=== PATIENT | female | born 1935 | race Caucasian/White ===

== ENCOUNTER 2021-07-19 07:56 | Inpatient (IN) ==
[2021-07-19] MEDS ORDERED: MAGNESIUM SULFATE 2 GM/50 ML BAG IV ONE (10:30)
[2021-07-19] MEDS ORDERED: PROPOFOL 200 MG/20 ML VIAL IV ONE (10:30)
[2021-07-19] MEDS ORDERED: fentaNYL 250 MCG/5 ML VIAL IV ONE (10:30)
[2021-07-19] MEDS ORDERED: LIDOCAINE HCL/PF 100 MG/5 ML SYRINGE IV ONE (10:30)
[2021-07-19] MEDS ORDERED: KETAMINE 50 MG/ML Syringe (ANEST) IV ONE (10:30)
[2021-07-19] MEDS ORDERED: TRANEXAMIC ACID 1,000 MG/10 ML VIAL ONE (10:30)
[2021-07-19] MEDS ORDERED: DEXAMETHASONE 10 MG/ML VIAL ONE (10:30)
[2021-07-19] MEDS ORDERED: ONDANSETRON 4 MG/2 ML VIAL ONE (10:30)
[2021-07-19] MEDS ORDERED: TRANEXAMIC ACID 1,000 MG/10 ML VIAL TOPICAL ONE (11:11)
--- NOTE | 2021-07-19 11:37 | XRay Report ---
CLINICAL INFORMATION: fractured right hip COMPARISON: Immediate preoperative films unavailable. FINDINGS: Right total hip prostheses is anatomically aligned without loosening or infection. Oblique subtrochanteric fracture has been reduced to anatomic alignment and is transfixed by lateral plate and screws. IMPRESSION: Subtrochanteric fracture reduced to anatomic alignment and transfixed by lateral plate, screws and cerclage wires. Right hip prostheses-unremarkable Interpreted and Authenticated by: Jonnie Kramer 07/19/21
[2021-07-19] MEDS ORDERED: NALOXONE HCL 0.4 MG/ML VIAL IV PRN (11:48)
[2021-07-19] MEDS ORDERED: LACTATED RINGERS 250 ML IV PRN (11:48)
[2021-07-19] MEDS ORDERED: MEPERIDINE 25 MG/ML VIAL IV PRN (11:48)
[2021-07-19] MEDS ORDERED: PROMETHAZINE 25 MG/ML VIAL IV PRN (11:48)
[2021-07-19] MEDS ORDERED: BENZOCAINE/MENTHOL 1 LOZENGE PO PRN ×2 (11:48→17:21)
[2021-07-19] MEDS ORDERED: IPRATROPIUM/ALBUTEROL 3 ML AMPUL.NEB NEB PRN (11:48)
[2021-07-19] MEDS ORDERED: ACETAMINOPHEN 1,000 MG/100 ML BAG IV ONE (11:48)
[2021-07-19] MEDS ORDERED: ONDANSETRON 4 MG/2 ML VIAL IV PRN ×3 (11:48→17:21)
[2021-07-19] MEDS ORDERED: diphenhydrAMINE 50 MG/ML VIAL IV PRN (11:48)
--- NOTE | 2021-07-19 11:57 | Brief Operative Note ---
Brief Operative Note Date of procedure: 07/19/21 Pre-op diagnosis: right hip periprosthetic fx Post-op diagnosis: same Procedure: right hip periprosthetic fx orif Grafts/Implants: Yes Anesthesia: GETA Complications: none Surgeon: Dionisio Sanz Internal Combustion Engine Assembler: Anish Anders Estimated blood loss (cc): 100 Tourniquet Time (Minutes): 0 Specimens Removed/Pathology: none sent Condition: stable Disposition: PACU
[2021-07-19] MEDS ORDERED: LACTATED RINGERS 1,000 ML IV SCH (12:00)
--- NOTE | 2021-07-19 12:21 | Discharge Plan ---
Discharge Instructions - [facility] Patient Instructions Total Hip Protocol: Follow activity instructions as provided by Physical Therapy. Discharge Plan Patient/Caregiver Discharge Instructions Activity: ambulate only with your walker Prescriptions: New hydrocodone-acetaminophen 5-325 mg Tablet 1 - 2 tab PO Q4H PRN (Reason: Pain) Qty: 30 RF: 0 aspirin 81 mg Tablet,Delayed Release (Dr/Ec) 81 mg PO QDAY Qty: 60 RF: 0 No Action atorvastatin 10 mg tablet 10 mg tablet 10 mg PO QDAY Qty: 90 RF: 1 levothyroxine 112 mcg tablet 112 mcg PO QDAY Qty: 90 RF: 1 nitrofurantoin 100 mg Capsule 100 mg PO BID RF: 0 calcium carbonate 600 mg calcium (1,500 mg) Tablet 600 mg PO DAILY RF: 0 cyanocobalamin (vitamin B-12) 500 mcg Tablet 500 mcg PO QDAY RF: 0 lisinopril 5 mg Tablet 5 mg PO QDAY RF: 0 ferrous gluconate 324 mg (36 mg iron) Tablet 324 mg PO QDAY RF: 0 potassium chloride 20 mEq Tablet Extended Release 20 meq PO QDAY RF: 0 folic acid tablet 0.4 mg PO DAILY RF: 0 metoprolol succinate 25 mg tablet extended release 24 hr 50 mg PO QDAY RF: 0 tramadol 50 mg Tablet 50 mg PO BID RF: 0 magnesium hydroxide [Milk of Magnesia] 400 mg/5 mL Suspension 400 mg PO PRN PRN (Reason: Constipation) RF: 0 ibuprofen 400 mg Tablet 400 mg PO Q8H PRN (Reason: Pain) RF: 0 ondansetron 4 mg Tablet,Disintegrating 4 mg PO Q6H PRN (Reason: Nausea And Vomiting) RF: 0 bisacodyl 5 mg Tablet 5 mg PO DAILY PRN (Reason: Constipation) RF: 0 acetaminophen [Tylenol] 325 mg Capsule 650 mg PO Q6H PRN (Reason: headache or pain) RF: 0 Other Ambulatory Orders: Physical Therapy DC - [facility] (Routine) Location: None Selected Ordered By: Anish Anders Toilet Riser Discharge Order (ONCE) Location: None Selected Ordered By: Anish Anders Walker (ONCE) Location: None Selected Ordered By: Anish Anders Follow Up Plan Follow up with: Anish Anders PA-C [Physician [place] Compounder] - Patient Disposition: er [facility] Prognosis: Fair Rehab Potential: Fair I certify that the patient requires SNF services: Yes Discharge Orders: Discharge Order (Routine); Ordered 07/20/21 Ordered By: Anish Anders
--- NOTE | 2021-07-19 12:35 | Operative Note ---
DATE OF OPERATION: 07/19/2021 PREOPERATIVE DIAGNOSIS: Proximal periprosthetic fracture, 3-part. POSTOPERATIVE DIAGNOSIS: Proximal periprosthetic fracture, 3-part with a stable [place] stem. PROCEDURE: Right total hip arthroplasty, periprosthetic fracture open reduction and internal fixation with cable and plates. SURGEON: Dionisio Sanz M.D. PERCUSSION INSTRUMENT TUNER: Anish Anders PA-C. The PA's assistance was required for the safe and efficient completion of the entire case. This provider's expertise and technical skill were required throughout the case. The PA assisted with preoperative coordination, intraoperative retraction, wound closure, dressing and splint application, as well as postoperative documentation and care coordination. ANESTHESIA: General LMA anesthesia. COMPLICATIONS: None. DESCRIPTION OF PROCEDURE: The patient was brought to the operating room, put to sleep with general LMA anesthesia. Once asleep, the patient had the right hip sterilely prepped and draped and a timeout performed confirming this as the operative site by initials, consent form, and W-rays. Once done, I was able to then make an incision in the superior to distal location over the greater trochanter, and I identified the IT band and the tensor fascia. This was incised through the gluteus ced and identified the hip joint. The stem appeared to be stable. The greater trochanter was completely off as well as the lesser trochanter. At this point, we were able to then reduce the fracture by rotating the hip. A cable was then placed around the lesser trochanter. Three (3) distal cables onto the shaft were placed through the plate and one (1) around the greater trochanter. The hook plate was secured and then we took an x-ray. The Initial x-ray showed a significant disc displacement or the implant trochanteric hook appeared to be posterior. Once done, I was able to reduce this movethe plate slightly more anteriorly for better fixation. I then placed the cables and tensioned them into place, making sure that we captured the lesser trochanter and greater trochanter. The patient tolerated this well. There were no complications. We thoroughly irrigated the wound and then placed Tranexamic acid within the wound with 500 cc of normal saline. We allowed this to set up for 5 minutes and then once this had formed the initial we then closed the fascial layer with #1 Stratafix, closed Wilmer's fascia with Stratafix and adhesive and tiarra. The wound was about 6-7 inches long. A sterile bandage was applied. There were no complications. The implant is a hook plate from [employer] as well as 5 cables. RBH:akilah Job ID: [id number] Doc ID: [id number] Dionisio Sanz MD
[2021-07-19] MEDS: fentaNYL 100 MCG/2 ML VIAL IV PRN ×2 (12:50→12:52)
--- NOTE | 2021-07-19 15:39 | XRay Report ---
CLINICAL INFORMATION: Proximal left femoral fracture ORIF COMPARISON: 06/29/2019 FINDINGS: Oblique subtrochanteric fracture through the proximal left femoral diaphysis has been reduced to anatomic alignment and transfixed by gamma nail. Right total hip prostheses is anatomically aligned without loosening or infection. A right subtrochanteric fracture has been reduced to anatomic alignment transfixed by plate and cerclage wires. Severe degenerative change noted in the left hip. IMPRESSION: ORIF oblique subtrochanteric fracture proximal left femoral diaphysis. Alignment is anatomic. Right total hip prostheses anatomically aligned Right subtrochanteric fracture reduced to anatomic alignment transfixed by plate and cerclage wires Interpreted and Authenticated by: Jonnie Kramer 07/19/21
[2021-07-19] MEDS ORDERED: HYDROmorphone 1 MG/ML SYRINGE IV PRN (17:21)
[2021-07-19] MEDS ORDERED: TRANEXAMIC ACID 1,000 MG/10 ML VIAL IV ONE (17:21)
[2021-07-19] MEDS ORDERED: FLEETS ADULT ENEMA PR PRN (17:21)
[2021-07-19] MEDS ORDERED: BISACODYL 10 MG SUPP.RECT PR PRN (17:21)
[2021-07-19] MEDS ORDERED: MAGNESIUM HYDROXIDE 30 ML ORAL.SUSP PO PRN ×2 (17:21→17:46)
[2021-07-19] MEDS ORDERED: POLYETHYLENE GLYCOL 3350 17 GM PACKET PO PRN (17:21)
[2021-07-19] MEDS ORDERED: KETOROLAC 15 MG/ML VIAL IV PRN (17:21)
[2021-07-19] MEDS ORDERED: LORazepam 0.5 MG TABLET PO PRN (17:46)
[2021-07-19] MEDS ORDERED: ACETAMINOPHEN 325 MG PO PRN (17:46)
[2021-07-19] MEDS: LACTATED RINGERS 1,000 ML IV SCH ×2 (18:10→21:36)
[2021-07-19] MEDS ORDERED: ONDANSETRON 4 MG ODT TABLET SL PRN (20:40)
[2021-07-19] MEDS ORDERED: BISACODYL 5 MG TABLET PO PRN (20:42)
[2021-07-19] MEDS: SENNOSIDES 1 TABLET PO SCH (21:34)
[2021-07-19] MEDS: NITROFURANTOIN SR 100 MG CAPSULE PO SCH (21:34)
[2021-07-19] MEDS: ceFAZolin 1 GM VIAL IV SCH (21:34)
[2021-07-19] MEDS: DOCUSATE SODIUM 100 MG CAPSULE PO SCH (21:35)
[2021-07-19] MEDS: 0.9 % SODIUM CHLORIDE 10 ML SYRINGE IV SCH (21:35)
[2021-07-19] MEDS: ASPIRIN 81 MG TAB.CHEW CHEWED SCH (21:35)
[2021-07-19] MEDS: TEMAZEPAM 15 MG CAPSULE PO PRN (21:35)
[2021-07-20] MEDS: LACTATED RINGERS 1,000 ML IV SCH ×3 (04:51→15:39)
[2021-07-20] MEDS: IBUPROFEN 200 MG TABLET PO PRN ×3 (05:42→18:49)
[2021-07-20] MEDS: ceFAZolin 1 GM VIAL IV SCH (05:42)
[2021-07-20] MEDS: 0.9 % SODIUM CHLORIDE 10 ML SYRINGE IV SCH ×4 (05:43→20:38)
[2021-07-20] MEDS: LEVOTHYROXINE SODIUM 112 MCG TABLET PO SCH (07:35)
[2021-07-20] MEDS: POTASSIUM CHLORIDE 20 MEQ TABLET PO SCH (10:53)
[2021-07-20] MEDS: FOLIC ACID 1 MG TABLET PO SCH (10:54)
[2021-07-20] MEDS: DOCUSATE SODIUM 100 MG CAPSULE PO SCH ×2 (10:54→19:50)
[2021-07-20] MEDS: ASPIRIN 81 MG TAB.CHEW CHEWED SCH ×2 (10:54→19:50)
[2021-07-20] MEDS: ATORVASTATIN 20 MG TABLET PO SCH (10:54)
[2021-07-20] MEDS: FERROUS GLUCONATE 324 MG TABLET PO SCH (10:54)
[2021-07-20] MEDS: LISINOPRIL 5 MG TABLET PO SCH (10:57)
[2021-07-20] MEDS: CYANOCOBALAMIN (VITAMIN B-12) 500 MCG TABLET PO SCH (10:57)
[2021-07-20] MEDS: METOPROLOL SUCCINATE 25 MG TAB.XL.24H PO SCH (10:57)
[2021-07-20] MEDS: NITROFURANTOIN SR 100 MG CAPSULE PO SCH ×2 (10:57→19:49)
[2021-07-20] MEDS: CALCIUM CARBONATE 500 MG TAB.CHEW CHEWED SCH (10:58)
[2021-07-20] MEDS: SENNOSIDES 1 TABLET PO SCH (19:50)
[2021-07-21] MEDS: LACTATED RINGERS 1,000 ML IV SCH ×2 (01:03→08:25)
[2021-07-21] MEDS: IBUPROFEN 200 MG TABLET PO PRN ×2 (04:04→14:40)
[2021-07-21] MEDS: 0.9 % SODIUM CHLORIDE 10 ML SYRINGE IV SCH ×3 (04:05→20:56)
[2021-07-21] MEDS: LEVOTHYROXINE SODIUM 112 MCG TABLET PO SCH (07:08)
[2021-07-21] MEDS: FOLIC ACID 1 MG TABLET PO SCH (08:10)
[2021-07-21] MEDS: LISINOPRIL 5 MG TABLET PO SCH (08:10)
[2021-07-21] MEDS: ASPIRIN 81 MG TAB.CHEW CHEWED SCH ×2 (08:10→20:56)
[2021-07-21] MEDS: FERROUS GLUCONATE 324 MG TABLET PO SCH (08:11)
[2021-07-21] MEDS: CYANOCOBALAMIN (VITAMIN B-12) 500 MCG TABLET PO SCH (08:11)
[2021-07-21] MEDS: DOCUSATE SODIUM 100 MG CAPSULE PO SCH ×2 (08:11→20:50)
[2021-07-21] MEDS: ATORVASTATIN 20 MG TABLET PO SCH (08:11)
[2021-07-21] MEDS: NITROFURANTOIN SR 100 MG CAPSULE PO SCH ×2 (08:11→20:56)
[2021-07-21] MEDS: METOPROLOL SUCCINATE 25 MG TAB.XL.24H PO SCH (08:11)
[2021-07-21] MEDS: POTASSIUM CHLORIDE 20 MEQ TABLET PO SCH (08:12)
[2021-07-21] MEDS: CALCIUM CARBONATE 500 MG TAB.CHEW CHEWED SCH (08:13)
--- NOTE | 2021-07-21 09:53 | Orthopedic Progress Note ---
SUBJECTIVE Subjective Patient information: Note initiated : 07/21/21 at 9:49 am Service Date, if different from initiated Date: [] Patient: Casie Corrales 85 y/o F admitted on 07/19/21 for Right ORIF P eriprosthetic Hip Fracture, Possible. Chief Complaint: [right intertroch fx and miguel ángel prosthetic fx orif] Constitutional Vitals: Vital Signs Temp Pulse Resp BP Pulse Ox 98.9 F 84 16 150/77 96 07/21/21 07:25 07/21/21 07:25 07/21/21 07:25 07/21/21 07:25 07/21/21 07:25 Period Temp Pulse Resp BP Sys/Mon Pulse Ox Last 24 Hr 97.4 F-99.2 F 62-84 14-18 124-168/67-83 16-97 Intake and Output 07/20/21 07/21/21 07/21/21 21:59 05:59 13:59 Intake Total 1430 400 Output Total 1 6 1 Balance 1429 394 -1 Weight 163 lb 9 oz Intake & Output: Intake & Output 07/20/21 07/21/21 07/21/21 21:59 05:59 13:59 Intake Total 1430 400 Output Total 1 6 1 Balance 1429 394 -1 Weight 163 lb 9 oz Intake: IV 710 Lactated Ringers 1,000 ml @ 100 710 mls/hr IV .Q10H [facility] Rx#: [id number] Oral 720 400 Output: # of times incontinent of urine 1 6 1 Other: Meal Nourishment/Supplement Percent of Meal Consumed 75% # Bowel Movements 0 Head Head exam: Present atraumatic Eye Eye exam: Present PERRL Extremities Exam Extremities exam: Present joint swelling, Foot pink and warm and neurovascular intact Psychiatric Psychiatric exam: Present normal affect and normal mood OBJ DATA Labs CBC & Chem 7: 07/20/21 07:08 Labs: Abnormal Lab Results 07/20/21 07:08 Hct 26.4 L Meds: Medications Acetaminophen (Acetaminophen 325 Mg Tablet) 650 mg PO Q6HP PRN; Protocol PRN Reason: Per Pain Protocol/Fever > 101 Hydrocodone Bitart/Acetaminophen (Hydrocodone/Apap 7.5/325mg Tablet) 1 - 2 tab PO Q4HP PRN; Protocol PRN Reason: Per Pain Protocol Aspirin (Aspirin 81 Mg Tab.Chew) 81 mg CHEWED BID [facility] Last Admin: 07/21/21 08:10 Dose: 81 mg Documented by: Atorvastatin Calcium (Atorvastatin 20 Mg Tablet) 10 mg PO QDAY [facility] Last Admin: 07/21/21 08:11 Dose: 10 mg Documented by: Bisacodyl (Bisacodyl 10 Mg Supp.Rect) 10 mg [place] Q2-3DAYS PRN PRN Reason: Constipation Bisacodyl (Bisacodyl 5 Mg Tablet) 5 mg PO DAILYP PRN PRN Reason: Constipation Calcium Carbonate/Glycine (Calcium Carbonate 500 Mg Tab.Chew) 500 mg CHEWED DAILY [facility] Last Admin: 07/21/21 08:13 Dose: 500 mg Documented by: Cyanocobalamin (Cyanocobalamin (Vitamin B-12) 500 Mcg Tablet) 500 mcg PO QDAY [facility] Last Admin: 07/21/21 08:11 Dose: 500 mcg Documented by: Docusate Sodium (Docusate Sodium 100 Mg Capsule) 100 mg PO BID [facility] Last Admin: 07/21/21 08:11 Dose: 100 mg Documented by: Ferrous Gluconate (Ferrous Gluconate 324 Mg Tablet) 324 mg PO DAILY [facility] Last Admin: 07/21/21 08:11 Dose: 324 mg Documented by: Folic Acid (Folic Acid 1 Mg Tablet) 1 mg PO DAILY [facility] Last Admin: 07/21/21 08:10 Dose: 1 mg Documented by: Hydromorphone HCl (Hydromorphone 1 Mg/Ml Syringe) 0.5 - 2 mg IV Q2HP PRN; Protocol PRN Reason: Per Pain Protocol Lactated Ringer's (Lactated Ringers) 1,000 mls @ 100 mls/hr IV .Q10H [facility] Last Admin: 07/21/21 08:25 Dose: Not Given Documented by: Ibuprofen (Ibuprofen 200 Mg Tablet) 400 mg PO Q8HP PRN; Protocol PRN Reason: Pain Last Admin: 07/21/21 04:04 Dose: 400 mg Documented by: Ketorolac Tromethamine (Ketorolac 15 Mg/Ml Vial) 15 mg IV Q6HP PRN; Protocol PRN Reason: Per Pain Protocol Stop: 07/21/21 17:21 Levothyroxine Sodium (Levothyroxine Sodium 112 Mcg Tablet) 112 mcg PO ACB [facility] Last Admin: 07/21/21 07:08 Dose: 112 mcg Documented by: Lisinopril (Lisinopril 5 Mg Tablet) 5 mg PO QDAY [facility] Last Admin: 07/21/21 08:10 Dose: 5 mg Documented by: Lorazepam (Lorazepam 0.5 Mg Tablet) 0.5 mg PO Q4HP PRN PRN Reason: ANXIETY/SEDATION Magnesium Hydroxide (Magnesium Hydroxide 30 Ml Oral.Susp) 30 ml PO BIDP PRN PRN Reason: Constipation Last Admin: 07/21/21 08:37 Dose: 30 ml Documented by: Metoprolol Succinate (Metoprolol Succinate 25 Mg Tab.Xl.24h) 50 mg PO QDAY [facility] Last Admin: 07/21/21 08:11 Dose: 50 mg Documented by: Nitrofurantoin Macrocrystals (Nitrofurantoin Sr 100 Mg Capsule) 100 mg PO BID [facility] Last Admin: 07/21/21 08:11 Dose: 100 mg Documented by: Ondansetron HCl (Ondansetron 4 Mg/2 Ml Vial) 4 mg IV Q4HP PRN; Protocol PRN Reason: Nausea And Vomiting Ondansetron HCl (Ondansetron 4 Mg Odt Tablet) 4 mg SL Q6HP PRN PRN Reason: Nausea And Vomiting Polyethylene Glycol (Polyethylene Glycol 3350 17 Gm Packet) 17 gm PO DAILYP PRN PRN Reason: Constipation Potassium Chloride (Potassium Ch[facility] 20 [facility]eq [facility]t) [facility] Last Admin: 07/21/21 08:12 Dose: 20 meq Documented by: Senna (Sennosides 1 Tablet) 2 tab PO [facility] Last Admin: 07/20/21 19:50 Dose: 2 tab Documented by: Sodium Biphosphate/Sodium Phosphate (Fleets Adult Enema) 1 dose [place] Q3-4DAYS PRN PRN Reason: Constipation Sodium Chloride (0.9 % Sodium Chloride 10 Ml Syringe) 10 ml IV Q8 [facility] Last Admin: 07/21/21 04:05 Dose: 10 ml Documented by: Temazepam (Temazepam 15 Mg Capsule) 15 mg PO HSP PRN PRN Reason: Insomnia Last Admin: 07/19/21 21:35 Dose: 15 mg Documented by: Throat Lozenges (Benzocaine/Menthol 1 Lozenge) 1 lozenge PO PRN PRN PRN Reason: Sore Throat A/P Narrative A/P Narrative: dc to rehab or care facilities for 2-3 weeks then dc to home very week as she is deconditioned from bed rest for 3 weeks Time Spent With Patient Time: Total time spent is greater than 50% in coordination of care (as documented) at patient's floor/unit and/or counseling patient: Total time spent with greater than 50% in coordination of care (as documented) at patient's floor/unit and/or counseling patient:: 15 - 24 minutes
[2021-07-21] MEDS: SENNOSIDES 1 TABLET PO SCH (20:51)
[2021-07-21] MEDS: ACETAMINOPHEN 325 MG TABLET PO PRN (21:42)
[2021-07-21] MEDS: TEMAZEPAM 15 MG CAPSULE PO PRN (22:21)
[2021-07-22] MEDS: 0.9 % SODIUM CHLORIDE 10 ML SYRINGE IV SCH ×4 (05:48→20:53)
--- NOTE | 2021-07-22 07:19 | Consultation ---
DATE OF CONSULTATION: 07/19/2021 HISTORY OF PRESENT ILLNESS: The patient arrived in the Emergency Room where she was diagnosed with a periprosthetic fracture. She was transferred from [place]. I have reviewed her images and reviewed her history and physical. Her chief complaint is right leg and thigh pain with inability to ambulate after a same level fall. This occurred about a week ago when she fell. She has been in the hospital in the swing bed, has not improved. PAST MEDICAL HISTORY: Significant for diminished activity level, she is 85 years of age. She had the left hip pain noted on 04/21/2021 after a fall. Today, it is right hip pain. 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 She has a history of hypertension, shingles, osteoarthritis, osteopenia, GERD, reflux, insomnia, hyperlipidemia, diverticulitis. PRIOR SURGICAL HISTORY: Right total hip arthroplasty. SOCIAL HISTORY: The patient reports she lives at home and is functioning but not independently. She denies use of tobacco or alcohol use. FAMILY HISTORY: Significant for a father who secondary to a cerebrovascular accident. REVIEW OF SYSTEMS: No active chest pain, no shortness of breath. She had a thrombectomy by Dr. Ortega in 2016. ALLERGIES: CIPRO. HOME MEDICATIONS: 1. Metoprolol. 2. Aspirin. 3. Gabapentin. 4. Restoril. 5. Hydrocodone. 6. Levothyroxine 100 ____. PHYSICAL EXAMINATION: GENERAL: Patient is alert, cooperative, in no severe pain. She accounts her injury very accurately. She is in no acute distress. EYES: Her extraocular movements are intact. NECK: Supple. Nontender. CARDIOVASCULAR: Regular rate and rhythm. No murmurs, rubs, or gallops. Respiratory rate is 14 and nonlabored. ABDOMEN: Soft, nontender. EXTREMITIES: Swollen around the right hip with no open wounds, lacerations, or abrasions. NEUROLOGICAL: She can move her foot up and down. She is awake and alert. SKIN: Warm. PSYCHIATRIC: Evaluation of her mood and affect appropriate. IMAGING: Her x-rays of right hip demonstrate three views. This demonstrated a periprosthetic fracture involving the lesser troch, greater troch with an [place] stem that appears to be stable. With this, I have recommended the diagnosis as periprosthetic fracture, right hip. Procedure will be treatment of open reduction and internal fixation with a hook plate with cables, bone grafting as needed, preserving the stem if possible. There were a possibility of replacing the stem. There is a risk of heart attacks and strokes giving these cases and her past history. She agrees to proceed. RBH:ruiz Job ID: [id number] Doc ID: [id number] Dionisio Sanz MD
[2021-07-22] MEDS: HYDROCODONE/APAP 7.5/325MG TABLET PO PRN ×2 (07:46→17:27)
[2021-07-22] MEDS: LEVOTHYROXINE SODIUM 112 MCG TABLET PO SCH (07:58)
[2021-07-22] MEDS: LISINOPRIL 5 MG TABLET PO SCH (10:16)
[2021-07-22] MEDS: DOCUSATE SODIUM 100 MG CAPSULE PO SCH ×2 (10:16→20:51)
[2021-07-22] MEDS: METOPROLOL SUCCINATE 25 MG TAB.XL.24H PO SCH (10:16)
[2021-07-22] MEDS: ATORVASTATIN 20 MG TABLET PO SCH (10:16)
[2021-07-22] MEDS: CYANOCOBALAMIN (VITAMIN B-12) 500 MCG TABLET PO SCH (10:17)
[2021-07-22] MEDS: FOLIC ACID 1 MG TABLET PO SCH (10:17)
[2021-07-22] MEDS: CALCIUM CARBONATE 500 MG TAB.CHEW CHEWED SCH (10:17)
[2021-07-22] MEDS: ASPIRIN 81 MG TAB.CHEW CHEWED SCH ×2 (10:17→20:52)
[2021-07-22] MEDS: POTASSIUM CHLORIDE 20 MEQ TABLET PO SCH (10:17)
[2021-07-22] MEDS: FERROUS GLUCONATE 324 MG TABLET PO SCH (10:17)
[2021-07-22] MEDS: NITROFURANTOIN SR 100 MG CAPSULE PO SCH ×2 (10:17→20:52)
[2021-07-22] MEDS: IBUPROFEN 200 MG TABLET PO PRN (20:51)
[2021-07-22] MEDS: SENNOSIDES 1 TABLET PO SCH (20:51)
[2021-07-22] MEDS: TEMAZEPAM 15 MG CAPSULE PO PRN (20:52)
[2021-07-23] MEDS: IBUPROFEN 200 MG TABLET PO PRN ×2 (04:55→19:51)
[2021-07-23] MEDS: 0.9 % SODIUM CHLORIDE 10 ML SYRINGE IV SCH ×3 (04:56→19:59)
--- NOTE | 2021-07-23 07:54 | Orthopedic Progress Note ---
SUBJECTIVE Subjective Patient information: Note initiated : 07/23/21 at 7:52 am Service Date, if different from initiated Date: [] Patient: Casie Corrales 85 y/o F admitted on 07/19/21 for Right ORIF P eriprosthetic Hip Fracture, Possible. Chief Complaint: [PO 4 pt is a/a and NAD currently awaiting SNF transfer] Constitutional Vitals: Vital Signs Temp Pulse Resp BP Pulse Ox 98.1 F 72 14 130/73 95 07/23/21 03:54 07/23/21 03:54 07/23/21 03:54 07/23/21 03:54 07/23/21 03:54 Period Temp Pulse Resp BP Sys/Mon Pulse Ox Last 24 Hr 96.2 F-99.3 F 72-84 14-20 110-147/62-74 95-100 Intake and Output 07/22/21 07/23/21 07/23/21 21:59 05:59 13:59 Intake Total 980 100 Output Total 152 150 Balance 828 -50 Weight 148 lb 3.2 oz Intake & Output: Intake & Output 07/22/21 07/23/21 07/23/21 21:59 05:59 13:59 Intake Total 980 100 Output Total 152 150 Balance 828 -50 Weight 148 lb 3.2 oz Intake: Oral 980 100 Output: Void Amount 150 150 # of times incontinent of urine 2 Other: Meal Dinner Percent of Meal Consumed 25% Feeding Ability Independent Urine Appearance Clear Clear Urine Color Bright Yellow Dark Yellow Urine Odor Normal Extremities Exam Extremities exam: Present normal capillary refill, normal inspection, Foot pink and warm and neurovascular intact OBJ DATA Labs CBC & Chem 7: 07/20/21 07:08 Labs: Abnormal Lab Results 07/20/21 07:08 Hct 26.4 L Meds: Medications Acetaminophen (Acetaminophen 325 Mg Tablet) 650 mg PO Q6HP PRN; Protocol PRN Reason: Per Pain Protocol/Fever > 101 Last Admin: 07/21/21 21:42 Dose: 650 mg Documented by: Hydrocodone Bitart/Acetaminophen (Hydrocodone/Apap 7.5/325mg Tablet) 1 - 2 tab PO Q4HP PRN; Protocol PRN Reason: Per Pain Protocol Last Admin: 07/22/21 17:27 Dose: 1 tab Documented by: Aspirin (Aspirin 81 Mg Tab.Chew) 81 mg CHEWED BID [facility] Last Admin: 07/22/21 20:52 Dose: 81 mg Documented by: Atorvastatin Calcium (Atorvastatin 20 Mg Tablet) 10 mg PO QDAY [facility] Last Admin: 07/22/21 10:16 Dose: 10 mg Documented by: Bisacodyl (Bisacodyl 10 Mg Supp.Rect) 10 mg [place] Q2-3DAYS PRN PRN Reason: Constipation Bisacodyl (Bisacodyl 5 Mg Tablet) 5 mg PO DAILYP PRN PRN Reason: Constipation Last Admin: 07/21/21 11:45 Dose: 5 mg Documented by: Calcium Carbonate/Glycine (Calcium Carbonate 500 Mg Tab.Chew) 500 mg CHEWED DAILY [facility] Last Admin: 07/22/21 10:17 Dose: 500 mg Documented by: Cyanocobalamin (Cyanocobalamin (Vitamin B-12) 500 Mcg Tablet) 500 mcg PO QDAY [facility] Last Admin: 07/22/21 10:17 Dose: 500 mcg Documented by: Docusate Sodium (Docusate Sodium 100 Mg Capsule) 100 mg PO BID [facility] Last Admin: 07/22/21 20:51 Dose: 100 mg Documented by: Ferrous Gluconate (Ferrous Gluconate 324 Mg Tablet) 324 mg PO DAILY [facility] Last Admin: 07/22/21 10:17 Dose: 324 mg Documented by: Folic Acid (Folic Acid 1 Mg Tablet) 1 mg PO DAILY [facility] Last Admin: 07/22/21 10:17 Dose: 1 mg Documented by: Hydromorphone HCl (Hydromorphone 1 Mg/Ml Syringe) 0.5 - 2 mg IV Q2HP PRN; Protocol PRN Reason: Per Pain Protocol Ibuprofen (Ibuprofen 200 Mg Tablet) 400 mg PO Q8HP PRN; Protocol PRN Reason: Pain Last Admin: 07/23/21 04:55 Dose: 400 mg Documented by: Levothyroxine Sodium (Levothyroxine Sodium 112 Mcg Tablet) 112 mcg PO ACB [facility] Last Admin: 07/22/21 07:58 Dose: 112 mcg Documented by: Lisinopril (Lisinopril 5 Mg Tablet) 5 mg PO QDAY [facility] Last Admin: 07/22/21 10:16 Dose: 5 mg Documented by: Lorazepam (Lorazepam 0.5 Mg Tablet) 0.5 mg PO Q4HP PRN PRN Reason: ANXIETY/SEDATION Magnesium Hydroxide (Magnesium Hydroxide 30 Ml Oral.Susp) 30 ml PO BIDP PRN PRN Reason: Constipation Last Admin: 07/21/21 08:37 Dose: 30 ml Documented by: Metoprolol Succinate (Metoprolol Succinate 25 Mg Tab.Xl.24h) 50 mg PO QDAY [facility] Last Admin: 07/22/21 10:16 Dose: 50 mg Documented by: Nitrofurantoin Macrocrystals (Nitrofurantoin Sr 100 Mg Capsule) 100 mg PO BID [facility] Last Admin: 07/22/21 20:52 Dose: 100 mg Documented by: Ondansetron HCl (Ondansetron 4 Mg/2 Ml Vial) 4 mg IV Q4HP PRN; Protocol PRN Reason: Nausea And Vomiting Ondansetron HCl (Ondansetron 4 Mg Odt Tablet) 4 mg SL Q6HP PRN PRN Reason: Nausea And Vomiting Last Admin: 07/21/21 22:21 Dose: 4 mg Documented by: Polyethylene Glycol (Polyethylene Glycol 3350 17 Gm Packet) 17 gm PO DAILYP PRN PRN Reason: Constipation Potassium Chloride (Potassium Chloride 20 Meq Tablet) 20 meq PO QAC [facility] Last Admin: 07/22/21 10:17 Dose: 20 meq Documented by: Senna (Sennosides 1 Tablet) 2 tab PO [facility] Last Admin: 07/22/21 20:51 Dose: 2 tab Documented by: Sodium Biphosphate/Sodium Phosphate (Fleets Adult Enema) 1 dose [place] Q3-4DAYS PRN PRN Reason: Constipation Sodium Chloride (0.9 % Sodium Chloride 10 Ml Syringe) 10 ml IV Q8 [facility] Last Admin: 07/23/21 04:56 Dose: 10 ml Documented by: Temazepam (Temazepam 15 Mg Capsule) 15 mg PO HSP PRN PRN Reason: Insomnia Last Admin: 07/22/21 20:52 Dose: 15 mg Documented by: Throat Lozenges (Benzocaine/Menthol 1 Lozenge) 1 lozenge PO PRN PRN PRN Reason: Sore Throat A/P Narrative A/P Narrative: Continue to mobilize the patient via PT, change dressing before discharge but keep zip line intact, WBAT with FWW assist. Time Spent With Patient Time: Total time spent is greater than 50% in coordination of care (as documented) at patient's floor/unit and/or counseling patient: Total time spent with greater than 50% in coordination of care (as documented) at patient's floor/unit and/or counseling patient:: less than 15 minutes
[2021-07-23] MEDS: FOLIC ACID 1 MG TABLET PO SCH (09:08)
[2021-07-23] MEDS: ASPIRIN 81 MG TAB.CHEW CHEWED SCH ×2 (09:08→19:56)
[2021-07-23] MEDS: POTASSIUM CHLORIDE 20 MEQ TABLET PO SCH (09:08)
[2021-07-23] MEDS: METOPROLOL SUCCINATE 25 MG TAB.XL.24H PO SCH (09:08)
[2021-07-23] MEDS: CALCIUM CARBONATE 500 MG TAB.CHEW CHEWED SCH (09:08)
[2021-07-23] MEDS: NITROFURANTOIN SR 100 MG CAPSULE PO SCH ×2 (09:09→19:56)
[2021-07-23] MEDS: DOCUSATE SODIUM 100 MG CAPSULE PO SCH ×2 (09:09→19:56)
[2021-07-23] MEDS: CYANOCOBALAMIN (VITAMIN B-12) 500 MCG TABLET PO SCH (09:09)
[2021-07-23] MEDS: ATORVASTATIN 20 MG TABLET PO SCH (09:09)
[2021-07-23] MEDS: FERROUS GLUCONATE 324 MG TABLET PO SCH (09:09)
[2021-07-23] MEDS: LISINOPRIL 5 MG TABLET PO SCH (09:09)
[2021-07-23] MEDS: LEVOTHYROXINE SODIUM 112 MCG TABLET PO SCH (09:09)
[2021-07-23] MEDS: HYDROCODONE/APAP 7.5/325MG TABLET PO PRN ×2 (09:09→17:50)
[2021-07-23] MEDS: TEMAZEPAM 15 MG CAPSULE PO PRN (19:56)
[2021-07-23] MEDS: SENNOSIDES 1 TABLET PO SCH (19:56)
[2021-07-24] MEDS: 0.9 % SODIUM CHLORIDE 10 ML SYRINGE IV SCH (04:54)
[2021-07-24] MEDS: IBUPROFEN 200 MG TABLET PO PRN (05:07)
[2021-07-24] MEDS: ATORVASTATIN 20 MG TABLET PO SCH (07:59)
[2021-07-24] MEDS: NITROFURANTOIN SR 100 MG CAPSULE PO SCH (07:59)
[2021-07-24] MEDS: LEVOTHYROXINE SODIUM 112 MCG TABLET PO SCH (08:00)
[2021-07-24] MEDS: FOLIC ACID 1 MG TABLET PO SCH (08:00)
[2021-07-24] MEDS: CALCIUM CARBONATE 500 MG TAB.CHEW CHEWED SCH (08:00)
[2021-07-24] MEDS: LISINOPRIL 5 MG TABLET PO SCH (08:00)
[2021-07-24] MEDS: ASPIRIN 81 MG TAB.CHEW CHEWED SCH (08:00)
[2021-07-24] MEDS: POTASSIUM CHLORIDE 20 MEQ TABLET PO SCH (08:00)
[2021-07-24] MEDS: FERROUS GLUCONATE 324 MG TABLET PO SCH (08:00)
[2021-07-24] MEDS: DOCUSATE SODIUM 100 MG CAPSULE PO SCH (08:00)
[2021-07-24] MEDS: METOPROLOL SUCCINATE 25 MG TAB.XL.24H PO SCH (08:00)
[2021-07-24] MEDS: CYANOCOBALAMIN (VITAMIN B-12) 500 MCG TABLET PO SCH (08:00)
[2021-07-24] MEDS: ACETAMINOPHEN 325 MG TABLET PO PRN (10:53)
--- NOTE | 2021-07-30 11:03 | EKG ---
[facility] Test Date: 2021-07-19 Pat Name: Casie Corrales Department: [facility]ARY[facility] Room: Gender: Female Life [employer]: : [id number] Requested By: Stas Burnett Order Number: [id number] Reading MD: Nahum Almazan Measurements Intervals [place] Rate: 131 P: [place]: QRS: -32 QRSD: 156 T: 85 QT: 468 QTc: 692 Interpretive Statements AGE IS NOT ENTERED, ASSUMED TO BE 51 YEARS OLD FOR PURPOSE OF ECG INTERPRETATION LEFT BUNDLE BRANCH BLOCK Electronically Signed On 07-30-2021 11:03:04 PDT by Nahum Almazan /[id number]
== END 2021-07-24 10:40 | DRG 481 ==
LOC: SUR 07:56 → MEDSUR 13:20
PROVIDERS: ADMIT Orthopaedic Surgery; ATTEND Orthopaedic Surgery